=== PATIENT | female | born 1975 | race Caucasian/White ===

== ENCOUNTER 2023-11-08 10:31 | Emergency (ER) | payer BC, SELFPAY ==
[2023-11-08 10:50] VITALS: BP 122/75; PULSE 69; RESP 18; TEMP 36.9; O2SAT 95; BMI 33.7
--- NOTE | 2023-11-08 11:07 | CT_ITS ---
[address] [address] Patient Name: CONCEPCION BRITT MRN: [id number] date: 1975 Sex: F Assigned Patient Location: ER Current Patient Location: ER Accession/Order Number: [id number] Exam Date: 11/08/2023 11:15 Report Date: 11/08/2023 11:40 At the request of: DALIA GONZALEZ Procedure: CT cervical spine wo con PROCEDURE: CT cervical spine wo con COMPARISON: None. HISTORY: neck pain with radiation to arm TECHNIQUE: Axial, Coronal, and Sagittal images were created without and with non-ionic intravenous contrast material. Dose reduction techniques were achieved by using automated exposure control and/or adjustment of mA and/or kV according to patient size and/or use of iterative reconstruction technique. FINDINGS: CRANIOCERVICAL AREA: Scattered cervical lymphadenopathy with increased number of normal-sized lymph nodes PARASPINAL AREA: Normal with no visible mass. BONES: Reversal of normal cervical lordosis. No acute fracture or spondylolisthesis. Mild to moderate diffuse degenerative spondylosis CERVICAL DISC LEVELS: C2-C3: Moderate degenerative disc disease is present without visible neural impingement. C3-C4: Moderate degenerative disc disease is present without visible neural impingement. C4-C5:Moderate degenerative disc disease is present without visible neural impingement. C5-C6:Disc collapse with endplate sclerosis. Moderate diffuse disc/osteophyte complex. Narrowing of the central canal to 7 mm in AP dimension. Moderate right and minimal left foraminal stenosis C6-C7:Moderate disc space narrowing. Mild diffuse disc/osteophyte complex. No central canal or right foraminal stenosis. Mild narrowing of the left neural foramen C7-T 1: Moderate disc space narrowing and disc desiccation. No disc bulge or herniation. No central canal or right foraminal stenosis. Mild narrowing of the left neural foramen CT/CT cervical spine wo con IMPRESSION: Reversal of normal cervical lordosis Degenerative changes resulting in central and foraminal stenosis as detailed above Electronically authenticated by: CHEN MURRAY Date: 11/08/2023 11:40
[2023-11-08] MEDS: METHYLPREDNISOLONE SOD SUCC PF 125 MG/2 ML VIAL IM (11:16)
--- NOTE | 2023-11-08 11:53 | ED.GENADUL1 ---
HPI - General Adult General Chief complaint: Extremity Problem, Nontraumatic Stated complaint: UPPER EXTREMITY PAIN Time Seen by Provider: 11/08/23 10:45 Source: patient Mode of arrival: walk-in Limitations: no limitations History of Present Illness HPI narrative: The patient presents complaining of left-sided neck pain which began November 06, 2023. She denied any associated injury. She says that the pain radiates from the left neck down into the left upper extremity. She took Motrin at 5 AM and has not had any relief with [id number] medications. No chest pain or shortness of breath Related Data Home Medications Medication Instructions Recorded Confirmed hydrochlorothiazide 12.5 mg capsule 12.5 mg PO Q12H 11/08/23 11/08/23 ipratropium bromide 42 mcg (0.06 2 spray intranasal DAILY PRN 11/08/23 11/08/23 %) nasal spray allergy symptoms ixekizumab 80 mg/mL subcutaneous 80 mg subcut .MONTH 11/08/23 11/08/23 auto-injector ([employer] Autoinjector) metoprolol succinate 100 mg 50 mg PO Q12H 11/08/23 11/08/23 tablet,extended release 24 hr Previous Rx's Medication Instructions Recorded methocarbamol 750 mg tablet 750 mg PO Q6H PRN pain #30 tabs 11/08/23 nabumetone 750 mg tablet 750 mg PO BID PRN pain #14 tabs 11/08/23 Allergies Allergy/AdvReac Type Severity Reaction Status Date / Time No Known Drug Allergies Allergy Verified 11/08/23 10:49 Exam Narrative Exam Narrative: Nurses notes and vital signs reviewed and patient is not hypoxic. afebrile General: Uncomfortable but no apparent distress. Skin: Warm, dry, no pallor noted. No rash to neck or shoulder. Head: Normocephalic, atraumatic. Neck: Supple, no lymphadenopathy. Left soft tissue tenderness and midline posterior neck tenderness Cardiovascular: Regular Rate and Rhythm without murmur, gallop or rub. Respiratory: No accessory muscle use or respiratory distress. Lungs are clear to auscultation, no wheezing, rales or rhonchi Back: No midline thoracic or lumbar vertebral tenderness. Mild superior left trapezius tenderness Musculoskeletal: Decreased left shoulder movement due to pain. Tenderness throughout the superior left trapezius and lateral left shoulder. No bony tenderness. no upper extremity edema/swelling Neurological: A&O x4. No cranial nerve dysfunction observed. No truncal ataxia. Moves all extremities. Sensation intact. Psychiatric: Cooperative and interactive. Normal mood and affect. Constitutional Vital Signs, click to edit/add: Last Vital Signs Temp 98.5 F 11/08/23 10:50 Pulse 69 11/08/23 10:50 Resp 18 11/08/23 10:50 BP 122/75 11/08/23 10:50 Pulse Ox 95 11/08/23 10:50 O2 Del Method Room Air 11/08/23 10:50 Course Vital Signs Vital signs: Vital Signs Temperature 98.5 F 11/08/23 10:50 Pulse Rate 69 11/08/23 10:50 Respiratory Rate 18 11/08/23 10:50 Blood Pressure 122/75 11/08/23 10:50 Pulse Oximetry 95 11/08/23 10:50 Oxygen Delivery Method Room Air 11/08/23 10:50 Temperature 98.5 F 11/08/23 10:50 Pulse Rate 69 11/08/23 10:50 Respiratory Rate 18 11/08/23 10:50 Blood Pressure 122/75 11/08/23 10:50 Pulse Oximetry 95 11/08/23 10:50 Oxygen Delivery Method Room Air 11/08/23 10:50 Medical Decision Making MDM Narrative Medical decision making narrative: The patient presents with neck pain and radicular symptoms with radiation into the left upper extremity. Although she denied injury, patient was sent for CT scanning of the cervical spine without contrast. She has degenerative changes as detailed in the radiologist's report. She received IM Solu-Medrol in the emergency department was discharged home with prescription for Relafen and Robaxin. Primary care physician follow-up recommended. Emergency department turn she worsens. Imaging Data ct cervical spine: Radiologist's impression: ITS Impressions Cervical Spine CT 11/08/23 11:07 IMPRESSION: Reversal of normal cervical lordosis Degenerative changes resulting in central and foraminal stenosis as detailed above Electronically authenticated by: CHEN MURRAY Date: 11/08/2023 11:40 Discharge Plan Discharge Chief Complaint: Extremity Problem, Nontraumatic Clinical Impression: Acute neck pain, Cervical radiculopathy, Degenerative disc disease, cervical Patient Disposition: Home, Self-Care Time of Disposition Decision: 12:04 Prescriptions / Home Meds: New nabumetone 750 mg tablet 750 mg PO BID PRN (Reason: pain) Qty: 14 0RF methocarbamol 750 mg tablet 750 mg PO Q6H PRN (Reason: pain) Qty: 30 0RF No [employer] Autoinjector 80 mg/mL auto-injector 80 mg SUBCUT .MONTH metoprolol succinate 100 mg tablet extended release 24 hr 50 mg PO Q12H ipratropium bromide 42 mcg (0.06 %) spray,non-aerosol 2 spray INTRANASAL DAILY PRN (Reason: allergy symptoms) hydrochlorothiazide 12.5 mg capsule 12.5 mg PO Q12H Instructions: Cervical Radiculopathy (ED), Degenerative Disc Disease (ED), Acute Neck Pain (ED) Stand Alone Forms: Portal Instructions
== END 2023-11-08 12:24 | disposition home or self-care (01) ==
PROVIDERS: Emergency Provider Emergency Medicine
DX: M50.10 Cervical disc disorder with radiculopathy, unspecified cervical region (principal); Z79.899 Other long term (current) drug therapy
CPT/HCPCS: 72125; 96374; 99284; J2930